=== PATIENT | male | born 1965 ===

== ENCOUNTER 2019-05-23 11:23 | Inpatient (IN) ==
[2019-05-23] MEDS ORDERED: PANTOPRAZOLE 40 MG VIAL IV STA (11:46)
[2019-05-23] MEDS ORDERED: SODIUM CHLORIDE 0.9% 1,000 ML IV STA (11:46)
[2019-05-23] MEDS ORDERED: ONDANSETRON 4 MG/2 ML VIAL IV STA (11:46)
[2019-05-23 12:14] LABS: Basophils % 0.2 % (0.0-0.8); Eosinophils % 0.1 % (0.00-10.9); Hematocrit 27.9 VOL% (42.0-52.0); Hemoglobin 9.2 GM/DL (14.0-18.0); Immature Granulocytes % 0.8 %; Immature Granulocytes Absolute 0.14 #; Lymphocytes # 5.3 10*3/uL (1.4-4.0); Lymphocytes % 29.4 % (21.2-54.2); Monocytes % 8.9 % (1.7-12.7); Neutrophils % 60.6 % (38.7-73.9); Platelet Count 240 T/CUMM (130-400); Red Cell Distribution Width 14.1 % (9.3-17.3); White Blood Count 18.1 T/CUMM (4-12)
[2019-05-23 12:22] LABS: INR 1.2; PT Patient Result 12.8 SECS (9.6-12.2); Partial Thromboplastin Time 26.3 SECS (20.8-36.0)
[2019-05-23] MEDS ORDERED: ACETAMINOPHEN 325 MG TABLET PO PRN (12:36)
[2019-05-23 12:44] LABS: Albumin 2.8 G/DL (3.4-5.0); Bilirubin,Total 0.9 MG/DL (0.2-1.0); Calcium 8.4 MG/DL (8.5-10.1); Osmolality,Calculated 302.1 MOS/KG (273-304); Total Protein 6.2 G/DL (6.4-8.3)
[2019-05-23] MEDS ORDERED: INFLUENZA VIRUS VACCINE 0.5 ML SYRINGE IM ONE (13:46)
[2019-05-23] MEDS: SODIUM CHLORIDE 0.9% 1,000 ML IV SCH ×2 (13:51→20:52)
[2019-05-23 14:39] LABS: Basophils % 0.2 % (0.0-0.8); Hematocrit 26.3 VOL% (42.0-52.0); Hemoglobin 8.8 GM/DL (14.0-18.0); Immature Granulocytes % 0.8 %; Immature Granulocytes Absolute 0.13 #; Lymphocytes # 4.9 10*3/uL (1.4-4.0); Lymphocytes % 28.8 % (21.2-54.2); Mean Corpuscular HGB Conc 33.5 GM/DL (32-36); Mean Corpuscular Volume 91.3 FL (87-102); Mean Platelet Volume 10.8 FL (9.6-12.0); Monocytes % 11.6 % (1.7-12.7); Neutrophils % 58.6 % (38.7-73.9); Platelet Count 213 T/CUMM (130-400); Red Blood Count 2.88 MC/CUMM (3.8-5.5); Red Cell Distribution Width 14.2 % (9.3-17.3); White Blood Count 16.9 T/CUMM (4-12)
[2019-05-23] MEDS: ONDANSETRON 4 MG/2 ML VIAL IV PRN (15:10)
[2019-05-23 20:04] LABS: Basophils % 0.2 % (0.0-0.8); Eosinophils % 0.1 % (0.00-10.9); Hematocrit 22.8 VOL% (42.0-52.0); Hemoglobin 7.5 GM/DL (14.0-18.0); Immature Granulocytes % 0.8 %; Immature Granulocytes Absolute 0.13 #; Lymphocytes # 4.6 10*3/uL (1.4-4.0); Lymphocytes % 28.9 % (21.2-54.2); Mean Corpuscular HGB Conc 32.9 GM/DL (32-36); Mean Corpuscular Volume 92.3 FL (87-102); Mean Platelet Volume 10.5 FL (9.6-12.0); Monocytes % 13.1 % (1.7-12.7); NRBC # 0.02 10*3/uL; Neutrophils % 56.9 % (38.7-73.9); Platelet Count 205 T/CUMM (130-400); Red Blood Count 2.47 MC/CUMM (3.8-5.5); Red Cell Distribution Width 14.5 % (9.3-17.3); White Blood Count 16.1 T/CUMM (4-12)
[2019-05-23] MEDS ORDERED: SODIUM CHLORIDE 0.9% 1,000 ML IV PRN (20:39)
[2019-05-23] MEDS: PANTOPRAZOLE 40 MG VIAL IV SCH (20:47)
[2019-05-23] MEDS ORDERED: PANTOPRAZOLE 40 MG TABLET PO SCH (21:00)
[2019-05-24] MEDS ORDERED: FUROSEMIDE 20 MG/2 ML VIAL IV ONE ×2 (00:41→03:19)
[2019-05-24 05:37] LABS: Basophils # 0.1 10*3/uL (0.0-0.2); Basophils % 0.5 % (0.0-0.8); Eosinophils # 0.2 10*3/uL (0.0-0.87); Eosinophils % 1.3 % (0.00-10.9); Hematocrit 26.6 VOL% (42.0-52.0); Hemoglobin 9.1 GM/DL (14.0-18.0); Immature Granulocytes % 1.4 %; Lymphocytes # 4.8 10*3/uL (1.4-4.0); Lymphocytes % 32.4 % (21.2-54.2); Mean Corpuscular HGB Conc 34.2 GM/DL (32-36); Mean Platelet Volume 10.6 FL (9.6-12.0); Monocytes % 14.2 % (1.7-12.7); NRBC # 0.04 10*3/uL; Neutrophils % 50.2 % (38.7-73.9); Platelet Count 178 T/CUMM (130-400); Red Blood Count 2.99 MC/CUMM (3.8-5.5); Red Cell Distribution Width 14.5 % (9.3-17.3); White Blood Count 14.7 T/CUMM (4-12)
[2019-05-24 05:44] LABS: INR 1.2; PT Patient Result 13.2 SECS (9.6-12.2)
[2019-05-24] MEDS: SODIUM CHLORIDE 0.9% 1,000 ML IV SCH (05:51)
[2019-05-24 06:00] LABS: Band Neutrophils 1 % (0-10); Eosinophils 2 % (0-10); Lymphocytes 22 % (20-55); Segmented Neutrophils 65 % (50-85); Total Cells Counted 100
[2019-05-24 06:01] LABS: Hypochromasia 1+; Platelet Estimate Adequate
[2019-05-24 06:15] LABS: % Iron Saturation 50.8 % (18-50)
[2019-05-24 06:23] LABS: Albumin 2.7 G/DL (3.4-5.0); Bilirubin,Total 1.8 MG/DL (0.2-1.0); Calcium 7.9 MG/DL (8.5-10.1); Osmolality,Calculated 290.3 MOS/KG (273-304); Troponin I 0.054 NG/ML (0.00-0.045)
[2019-05-24 07:08] LABS: Hepatitis B Core IgM Quant 0.07 Index; Hepatitis B Surface Ag Quant < 0.10 Index; Hepatitis B Surface Ag Result Negative (Negative); Hepatitis C Virus Ab Quant 0.07 Index; Hepatitis C Virus Ab Result Negative (Negative)
[2019-05-24] MEDS: LACTATED RINGERS 1,000 ML IV SCH (07:13)
[2019-05-24] MEDS ORDERED: LIDOCAINE 2% 5 ML VIAL ONE (09:00)
[2019-05-24] MEDS ORDERED: ONDANSETRON 4 MG/2 ML VIAL ONE (09:00)
[2019-05-24] MEDS ORDERED: propofoL 200 MG/20 ML VIAL IV ONE (09:00)
[2019-05-24] MEDS: PANTOPRAZOLE 40 MG VIAL IV SCH (09:27)
[2019-05-24] MEDS: ONDANSETRON 4 MG/2 ML VIAL IV PRN ×2 (09:27→19:25)
[2019-05-24] MEDS: PANTOPRAZOLE 40 MG TABLET PO SCH (20:31)
[2019-05-25 05:22] LABS: Basophils % 0.6 % (0.0-0.8); Eosinophils # 0.1 10*3/uL (0.0-0.87); Eosinophils % 1.3 % (0.00-10.9); Hematocrit 22.1 VOL% (42.0-52.0); Hemoglobin 7.7 GM/DL (14.0-18.0); Immature Granulocytes % 1.6 %; Lymphocytes # 2.3 10*3/uL (1.4-4.0); Lymphocytes % 36.7 % (21.2-54.2); Mean Corpuscular HGB Conc 34.8 GM/DL (32-36); Mean Corpuscular Volume 89.1 FL (87-102); Mean Platelet Volume 10.3 FL (9.6-12.0); Monocytes % 12.2 % (1.7-12.7); NRBC # 0.04 10*3/uL; Neutrophils % 47.6 % (38.7-73.9); Platelet Count 118 T/CUMM (130-400); Red Blood Count 2.48 MC/CUMM (3.8-5.5); Red Cell Distribution Width 14.3 % (9.3-17.3); White Blood Count 6.3 T/CUMM (4-12)
[2019-05-25 05:45] LABS: Calcium 7.7 MG/DL (8.5-10.1); Osmolality,Calculated 277.7 MOS/KG (273-304)
[2019-05-25] MEDS: LACTATED RINGERS 1,000 ML IV SCH (09:35)
[2019-05-25] MEDS: PANTOPRAZOLE 40 MG TABLET PO SCH ×2 (10:16→20:07)
[2019-05-25] MEDS: ONDANSETRON 4 MG/2 ML VIAL IV PRN (12:18)
[2019-05-25] MEDS ORDERED: SODIUM CHLORIDE 0.9% 1,000 ML IV PRN (14:37)
[2019-05-25 20:19] LABS: Hemoglobin 9.8 GM/DL (14.0-18.0)
[2019-05-26 04:47] LABS: Basophils # 0.1 10*3/uL (0.0-0.2); Basophils % 0.7 % (0.0-0.8); Eosinophils # 0.2 10*3/uL (0.0-0.87); Eosinophils % 2.2 % (0.00-10.9); Hematocrit 24.8 VOL% (42.0-52.0); Hemoglobin 8.6 GM/DL (14.0-18.0); Immature Granulocytes % 2.1 %; Immature Granulocytes Absolute 0.16 #; Lymphocytes # 2.5 10*3/uL (1.4-4.0); Lymphocytes % 32.9 % (21.2-54.2); Mean Corpuscular HGB Conc 34.7 GM/DL (32-36); Mean Corpuscular Volume 89.2 FL (87-102); Mean Platelet Volume 10.5 FL (9.6-12.0); Monocytes % 12.7 % (1.7-12.7); NRBC # 0.05 10*3/uL; Neutrophils % 49.4 % (38.7-73.9); Platelet Count 132 T/CUMM (130-400); Red Blood Count 2.78 MC/CUMM (3.8-5.5); Red Cell Distribution Width 13.9 % (9.3-17.3); White Blood Count 7.6 T/CUMM (4-12)
[2019-05-26 05:22] LABS: Albumin 2.5 G/DL (3.4-5.0); Bilirubin,Direct 0.27 MG/DL (0.0-0.20); Bilirubin,Indirect 0.7 MG/DL (0.0-1.0); Total Protein 5.6 G/DL (6.4-8.3)
[2019-05-26] MEDS: PANTOPRAZOLE 40 MG TABLET PO SCH (08:37)
[2019-05-26 12:20] VITALS: BP 125/57
== END 2019-05-26 13:39 | disposition home or self-care (01) | DRG 378 ==
LOC: N.ED 11:23 → N.EDINP 12:23 → SUATTDRO 12:23 → SUPCPDRO 12:23 → N.ICU 13:00 → N.2E 05-24 11:34
PROVIDERS: ADMIT Internal Medicine; ATTEND Internal Medicine